=== PATIENT | female | born 2005 | race Caucasian/White ===

== ENCOUNTER 2023-02-18 21:18 | Emergency (ER) | payer MEDICAID ==
[~2023-02-18] VITALS: Ht 162.6 cm; Wt 81.0 kg
[2023-02-18 21:34] VITALS: TEMP 98.3; O2SAT 100
[2023-02-18 22:40] VITALS: BP 138/78; PULSE 88; RESP 18
== END 2023-02-18 22:54 | disposition home or self-care (01) ==
LOC: ER 21:25
DX: F41.9 Anxiety disorder, unspecified (principal); R06.02 Shortness of breath
CPT/HCPCS: 99281

== ENCOUNTER 2023-03-04 15:18 | Emergency (ER) | payer MEDICAID ==
[~2023-03-04] VITALS: Ht 162.6 cm; Wt 81.0 kg
[2023-03-04 15:28] VITALS: BP 147/93; PULSE 91; RESP 18; TEMP 97.9; O2SAT 98
[2023-03-04 16:25] LABS: BASOPHILS % 0.2 % (0.0-2.0); EOSINOPHILS % 0.3 % (0.0-5.0); HEMATOCRIT. 42.1 % (36.0-48.0); HEMOGLOBIN. 14.8 g/dL (12.0-16.0); MEAN CORPUSCULAR HGB CONC 35.2 g/dL (31.0-37.0); MEAN CORPUSCULAR VOLUME 88.1 fL (81.0-99.0); MEAN PLATELET VOLUME 7.3 fl (7.4-10.4); MONOCYTES % 7.8 % (2.0-8.0); NEUTROPHILS % 67.7 % (40.0-76.0); PLATELET 379 x1000/uL (130-400); RED BLOOD CELL COUNT 4.77 mill/uL (4.2-5.4); WHITE BLOOD COUNT 7.5 x1000/uL (4.5-11.0)
[2023-03-04 16:34] LABS: CHLORIDE 106 mEq/L (98-107); INDEX HEMOLYSI 1 (1-3); INDEX ICTERIC 1 (1-4); INDEX LIPEMIC 1 (1-3); POTASSIUM 3.9 mEq/L (3.5-5.1); SODIUM 138 mEq/L (136-145)
[2023-03-04 16:46] LABS: ALANINE AMINOTRANSFERASE 13 IU/L (13-61); ASPARTATE AMINOTRANSFERASE 11 IU/L (15-37); BILIRUBIN TOTAL 0.6 mg/dL (0.1-1.0); CARBON DIOXIDE 25 mEq/L (21-32); CREATININE 0.6 mg/dL (0.6-1.3); GLUCOSE 106 mg/dL (70-105); PROTEIN TOTAL 8.7 g/dL (6.0-8.3); UREA NITROGEN BLOOD 5 mg/dL (7-21)
[2023-03-04 17:08] LABS: TROPONIN I HIGH SENSITIVITY < 4 ng/L (<54)
== END 2023-03-04 18:31 | disposition home or self-care (01) ==
LOC: ER 15:26
DX: R53.1 Weakness (principal)
CPT/HCPCS: 36415; 71045; 80053; 84484; 85025; 93005; 99285